=== PATIENT | female | born 1985 | race Caucasian/White ===

== ENCOUNTER 2023-03-19 23:32 | Emergency (ER) | payer OTHER, SELFPAY ==
[2023-03-19 23:42] VITALS: BP 137/101; PULSE 84; RESP 18; TEMP 36.5; O2SAT 100
--- NOTE | 2023-03-20 00:15 | ED.HA ---
HPI - Headache General Chief Complaint: Headache Stated Complaint: headache Time Seen by Provider: 03/19/23 23:46 Source: patient Mode of arrival: ambulatory Limitations: no limitations History of Present Illness HPI Narrative: Patient is a 37-year-old female who presents to the ED with report of a headache. Patient reports she has been having issues with her wisdom teeth coming in and experiencing pain with this over the last 1 week. She took a nap this afternoon and woke up with a headache. She c/o pain mostly to her frontal head, occasionally radiating around to her posterior region. She took Tylenol at the onset of the pain, but states pain continued to worsen. She did not try anything further for the pain. Denies Hx of migraines. She also reports having photophobia, occasional lightheadedness, nausea. Denies vomiting, vision changes, neck pain, fevers, focal weakness or numbness. Patient states she has been unable to get into a dentist due to insurance issues. Related Data Allergies Allergy/AdvReac Type Severity Reaction Status Date / Time No Known Allergies Allergy Verified 03/20/23 00:57 Review of Systems Review of Systems: CONSTITUTIONAL: Denies fever, chills, or sweats. EYES: See HPI. CARDIOVASCULAR: Denies chest pain. RESPIRATORY: Denies dyspnea. GASTROINTESTINAL: See HPI. MUSCULOSKELETAL: Denies back pain, neck pain. NEUROLOGIC: See HPI. All systems reviewed & are unremarkable except as noted in HPI and below Exam Narrative: GENERAL: Well appearing, obese with BMI of 33.3, non-toxic, in no acute distress. HEAD: Normocephalic, atraumatic. EYES: PERRL/EOMI, conjunctivae clear bilaterally. No nystagmus. ENT: MMs moist. Lower wisdom teeth beginning to protrude through skin. No evidence of protrusion from upper wisdom teeth. No evidence of focal abscess. No stridor. No trismus. NECK: Supple. No adenopathy, no masses. No meningeal signs. RESPIRATORY: Airway patent, respirations nonlabored. Clear to auscultation bilaterally, no rales, rhonchi, wheezing. CARDIOVASCULAR: Regular rate and rhythm without murmurs, rubs, or gallops. Radial pulses 2+ and equal bilaterally. ABDOMINAL: Soft, nontender, nondistended, no hepatosplenomegaly. Normoactive BS. MUSCULOSKELETAL: Moves all extremities. Strength/ROM intact without gross deformities. SKIN: Warm, dry, normal color. No rashes. NEURO: A&O X3. Speech clear. Follows commands. CN II-XII intact. Sensation grossly intact. Steady gait. No ataxic movements. Strength 5/5 in upper and lower extremities bilaterally. No focal deficits. PSYCHIATRIC: Anxious, tearful. Normal interaction. Course Vital Signs Vital signs: Vital Signs Temperature 97.7 F 03/19/23 23:42 Pulse Rate 84 03/19/23 23:42 Respiratory Rate 18 03/19/23 23:42 Blood Pressure 137/101 H 03/19/23 23:42 Pulse Oximetry 100 03/19/23 23:42 Oxygen Delivery Room Air 03/19/23 23:42 Temperature 97.7 F 03/19/23 23:42 Pulse Rate 84 03/19/23 23:42 Respiratory Rate 18 03/19/23 23:42 Blood Pressure 137/101 H 03/19/23 23:42 Pulse Oximetry 100 03/19/23 23:42 Oxygen Delivery Room Air 03/19/23 23:42 MDM - Headache MDM Narrative Medical decision making narrative: Patient presented to ED with several hour history of diffuse frontal [place]. VSS upon arrival. Exam unremarkable. Patient's headache was not sudden in onset or maximal in severity. There are no focal neurological deficits on exam. Subarachnoid hemorrhage is felt to be unlikely at this time. There is no history of fever and neck is supple on evaluation without meningeal signs. Meningitis is felt to be unlikely. No traumatic history or signs of trauma on evaluation. No vision changes or ocular signs of acute glaucoma. Patient sleeping upon reevaluation. She is feeling much better after migraine cocktail. Patient's headache is felt to be benign cephalgia and reasonable for further outpatient management. Advised patient to follow with P
[2023-03-20] MEDS: ACETAMINOPHEN 500 MG TABLET 1000 MG PO (00:19)
[2023-03-20] MEDS: diphenhydrAMINE HCl INJ 50 MG/ML VIAL 25 MG IV PUSH (00:20)
[2023-03-20] MEDS: SODIUM CHLORIDE 0.9% IV 1,000 ML 999 ML IV CONT (00:20)
[2023-03-20] MEDS: KETOROLAC 30 MG/ML VIAL (*BKC) IV PUSH (00:20)
[2023-03-20] MEDS: METOCLOPRAMIDE HCL INJ 10 MG/2 ML VIAL IV PUSH (00:20)
[2023-03-20 02:20] VITALS: BP 125/77; PULSE 76; RESP 16; O2SAT 99
== END 2023-03-20 02:20 | disposition home or self-care (01) ==
PROVIDERS: Emergency Provider Physician Assistant; PCP Family Medicine
DX: G43.909 Migraine, unspecified, not intractable, without status migrainosus (principal)
CPT/HCPCS: 96361; 96374; 96375; 99284; A9270; J1100; J1200; J1885; J2765; J7030